=== PATIENT | male | born 1995 | race Caucasian/White ===

== ENCOUNTER 2022-04-07 19:54 | Emergency (ER) | payer MEDICAID, OTHER ==
[~2022-04-07] VITALS: Ht 170.2 cm; Wt 69.0 kg
[2022-04-07] MEDS ORDERED: MORPHINE SULFATE 4 MG/ML CPJ (NOT FOR IM USE) IV STA (23:49)
[2022-04-07] MEDS ORDERED: ONDANSETRON HCL 4MG/2ML INJ IV STA (23:49)
[2022-04-08] MEDS ORDERED: SODIUM CHLORIDE 0.9% 1,000 ML IV ONE
[2022-04-08 00:30] LABS: BASOPHILS % 0.7 % (0.0-2.0); EOSINOPHILS % 0.3 % (0.0-5.0); HEMATOCRIT. 46.9 % (42.0-52.0); HEMOGLOBIN. 15.3 g/dL (14.0-18.0); LYMPHOCYTES % 19.3 % (20.0-50.0); MEAN CORPUSCULAR HEMOGLOBIN 25.4 pg (28.0-32.0); MEAN CORPUSCULAR VOLUME 77.8 fL (80.0-94.0); MEAN PLATELET VOLUME 8.2 fl (7.4-10.4); MONOCYTES % 8.9 % (2.0-8.0); NEUTROPHILS % 70.8 % (40.0-76.0); PLATELET 231 x1000/uL (130-400); RED BLOOD CELL COUNT 6.02 mill/uL (4.7-6.1)
[2022-04-08 00:36] LABS: CHLORIDE 105 mEq/L (98-107)
[2022-04-08] MEDS ORDERED: IOHEXOL-300 100 ML BOTTLE ONE (03:53)
[2022-04-08] MEDS ORDERED: MORPHINE SULFATE 2 MG/ML CPJ (NOT FOR IM USE) IV ONE (04:15)
[2022-04-08 05:30] VITALS: BP 120/72
[2022-04-08] MEDS ORDERED: IBUP-2028 MT (05:37)
== END 2022-04-08 06:00 | disposition home or self-care (01) ==
LOC: ER 19:54
DX: M54.2 Cervicalgia (principal); H92.01 Otalgia, right ear; Z88.0 Allergy status to penicillin
CPT/HCPCS: 36415; 70450; 70486; 70491; 80053; 85025; 96361; 96374; 96375; 96376; 99284; J2270; J2405; J7030; Q9967